=== PATIENT | female | born 1945 | race Caucasian/White ===

== ENCOUNTER 2017-09-26 08:00 | Outpatient (CLI) | payer MEDICARE | END 2017-09-26 08:01 | disposition home or self-care (01) | LOC: BICMAMMO 08:00 | PROVIDERS: ATTEND Specialist | DX: Z12.31 Encounter for screening mammogram for malignant neoplasm of breast (principal) | CPT/HCPCS: 77063; G0202; 77067 ==

== ENCOUNTER 2018-04-07 11:01 | Outpatient (CLI) | payer MEDICARE ==
--- NOTE | 2018-04-07 11:42 | RAD ---
CHEST PA AND LATERAL 2 VIEWS: History A 72-year-old female with a history of dyspnea. COMPARISON: 11/26/16. FINDINGS: Marked bilateral hyperinflation with increase in the AP dimension of the chest. Flattening of the he midiaphragms and blunting of the costophrenic angles. Heart size is within normal limits. No conflu ent pneumonia, overt edema, or pleural effusion. IMPRESSION: Marked bilateral stable hyperinflation. No significant new process. Atherosclerosis of the aorta. POS: [facility]
== END 2018-04-07 11:02 | disposition home or self-care (01) ==
LOC: RAD 11:01
PROVIDERS: ATTEND Internal Medicine Critical Care Medicine
DX: R06.00 Dyspnea, unspecified (principal); R91.8 Other nonspecific abnormal finding of lung field; I70.0 Atherosclerosis of aorta
CPT/HCPCS: 71046

== ENCOUNTER 2018-07-13 15:42 | Inpatient (IN) | payer MEDICARE ==
[2018-07-13 16:30] LABS: Bilirubin Moderate (Negative); Blood, Urine Large (Negative); Clarity CLOUDY (Clear); Glucose, Urine (Dipstick) Negative (Negative); Leukocyte Small (Negative); Nitrite Positive (Negative); Protein, Urine (Dipstick) > or equal to 300 mg/dL (Neg-Trace); Specific Gravity, Urine 1.029 (1.002-1.036); Urobilinogen 0.2 mg/dL (0.2-1.0)
[2018-07-13 16:32] LABS: Bacteria/HPF None Seen HPF (None Seen)
[2018-07-13 16:33] LABS: Hyaline Casts/LPF 0-3 HYALINE CAST LPF (0-3 Hyaline); Manual Microscopic Reviewed? No Path Casts Seen; Renal Epithelial None Seen HPF (0-3); Transitional Epithelial NONE SEEN HPF (0-3)
[2018-07-13 16:39] LABS: Amphetamine Not Detected (NotDetected); Barbiturates Screen Not Detected (NotDetected); Benzodiazepine Screen Not Detected (NotDetected); Cocaine Metabolite Screen Not Detected (NotDetected); Medtox Control Line Valid? VALID (VALID); Medtox Reader # READER 4; Methadone Not Detected (NotDetected); Methamphetamine Not Detected (NotDetected); Opiate Screen Not Detected (NotDetected); Oxycodone Screen Not Detected (NotDetected); Phencyclidine (PCP) Not Detected (NotDetected); THC/Cannabinoid Screen Not Detected (NotDetected); Tricyclic Screen Not Detected (NotDetected)
[2018-07-13 17:28] LABS: ALT (SGPT) 10 U/L (8-55); AST (SGOT) 50 U/L (5-34); Albumin 3.6 g/dL (3.4-4.8); Alkaline Phosphatase 85 U/L (40-150); Anion Gap 15 mmol/L (10-20); BUN (Urea Nitrogen) 35 mg/dL (9.8-20.1); Bilirubin, Total 2.4 mg/dL (0.2-1.2); Calc. Creatinine Clearance 0 mL/min (70-130); Calcium 9.1 mg/dL (7.8-10.44); Carbon Dioxide 24 mmol/L (23-31); Chloride 102 mmol/L (98-107); Estimated GFR-MDRD 36; Globulin 2.8 g/dL (2.4-3.5); Glucose 109 mg/dL (83-110); Lipase 8 U/L (8-78); Potassium 4.8 mmol/L (3.5-5.1); Protein, Total 6.4 g/dL (6.0-8.3); Sodium 136 mmol/L (136-145)
[2018-07-13 17:32] LABS: Acetaminophen Less than 6.0 mcg/mL (10.0-30.0); Alcohol Less than 10 mg/dL (Less than 10); Salicylate Less than 8.0 mg/dL (15.0-30.0)
[2018-07-13 17:37] LABS: CKMB 3.5 ng/mL (0-6.6); Troponin I 0.139 ng/mL (< 0.028)
--- NOTE | 2018-07-13 18:02 | RAD ---
RADIOGRAPH CHEST 1 VIEW: HISTORY: 72-year-old female with weakness. FINDINGS: There is no air space density, pulmonary edema, or pneumothorax. The lateral costophrenic angles are sharp. IMPRESSION: No acute pulmonary findings. bayron POS: [facility]
[2018-07-13] MEDS ORDERED: Acetaminophen 650 MG Suppository PR PRN (18:10)
[2018-07-13] MEDS ORDERED: Acetaminophen 325 MG TAB PO PRN (18:10)
[2018-07-13] MEDS ORDERED: Guaifenesin DM 100-10/5 ML UDCUP PO PRN (18:10)
--- NOTE | 2018-07-13 18:24 | CT ---
CT BRAIN NONCONTRAST: HISTORY: 72-year-old female with altered mental status, confusion. FINDINGS: There is no midline shift or any other mass effect. There is no evidence of acute intracranial hemor rhage, large cortical infarct, obstructive hydrocephalus, or extraaxial fluid collection. The calvar ium is intact. There is diffuse parenchymal volume loss. There are low attenuation areas in the whi te matter. These are nonspecific, but in a patient of this age, they are probably chronic ischemic w jennifer matter changes due to microvascular atherosclerosis. IMPRESSION: 1) No acute intracranial findings. 2) Involutional changes and chronic ischemic white matter changes. bayron POS: [facility]
[2018-07-13 18:59] LABS: Hemoglobin 15.2 g/dL (12.0-16.0); Mean Corpuscular HGB CONC 31.1 g/dL (32.0-36.0); Mean Corpuscular Hemoglobin 30.2 pg (27.0-31.0); Mean Corpuscular Volume 97.1 fL (78.0-98.0); Mean Platelet Volume 15.7 fL (7.4-10.4); Platelet Count 25 thou/uL (130-400); RBC Distribution Width 13.6 % (11.5-14.5); Red Blood Cell (RBC) Count 5.04 mill/uL (4.20-5.40); White Blood Cell (WBC) Count 14.8 thou/uL (4.8-10.8)
[2018-07-13 19:20] LABS: #Lymphocytes 1.6 thou/uL (1.20-3.40); #Monocytes 1.6 thou/uL (0.11-0.59); #Neutrophils 11.6 thou/uL (1.40-6.50); %Basophils 0.2 % (0.0-1.0); %Eosinophils 0.2 % (0.0-10.0); %Lymphocytes 10.6 % (21.0-51.0); %Monocytes 10.5 % (0.0-10.0); %Neutrophils 78.5 % (42.0-75.0); Band 8 % (5-11); Eosinophils 1 % (0-10); Lymphocytes 2 % (21-51); MDiff Complete? YES; Monocytes 4 % (0-10); Neutrophil 85 % (42-75); PLT Morphology Comment Appears Decreased; Poikilocytosis SLIGHT = 6-15 cells (100X) (0-5/hpf)
[2018-07-13 19:58] VITALS: BMI 22.8
[2018-07-13] MEDS ORDERED: Famotidine 20 MG TAB PO SCH (21:00)
[2018-07-13 21:01] LABS: Fibrinogen 447 mg/dL (253-463); INR-International Normal Ratio 1.1; PTT 27.2 SEC (22.9-36.1); Prothrombin Time 14.1 SEC (12.0-14.7)
[2018-07-13 21:01] LABS: Platelet Count 25 thou/uL (130-400)
[2018-07-13 21:02] LABS: D-Dimer Test 2.06 *mcg/mL (0.27-0.43); Platelet Count 25 thou/uL (130-400)
[2018-07-13 21:17] LABS: Troponin I 0.179 ng/mL (< 0.028)
[2018-07-13 21:17] LABS: Band 12 % (5-11); Hemoglobin 14.2 g/dL (12.0-16.0); Lymphocytes 10 % (21-51); MDiff Complete? YES; Mean Corpuscular HGB CONC 31.9 g/dL (32.0-36.0); Mean Corpuscular Hemoglobin 31.2 pg (27.0-31.0); Mean Corpuscular Volume 97.6 fL (78.0-98.0); Mean Platelet Volume 15.1 fL (7.4-10.4); Monocytes 9 % (0-10); Neutrophil 69 % (42-75); PLT Morphology Comment Appears Decreased; RBC Distribution Width 13.7 % (11.5-14.5); Red Blood Cell (RBC) Count 4.55 mill/uL (4.20-5.40); White Blood Cell (WBC) Count 12.8 thou/uL (4.8-10.8)
[2018-07-13] MEDS: Dextrose 5 % And 0.9 % NaCl 1,000 ML IV SCH (21:31)
[2018-07-13 21:37] LABS: FSP-Qualitative ABNORMAL (Normal)
[2018-07-13 21:38] LABS: FSP-Semiquantitative >=5 & <20 mcg/mL (Less than 5)
--- NOTE | 2018-07-14 | HP ---
REASON FOR ADMISSION: Acute encephalopathy, possible sepsis, urinary tract infection, demand ischemia, acute kidney injury, severe thrombocytopenia. HISTORY OF PRESENT ILLNESS: Please note patient is not a very good historian and does not recall anything except for feeling dizzy from 3 in the morning. I spoke to her son, Mr. Bang. Per son, patient was in the restroom for a long time. His grandson was knocking the door and patient was not responding. After nearly 45 minutes, fire department was called who busted open the door and went to check on her. She was sitting on the toilet seat leaning against the sink and was very lethargic. She did not recognize her grandson or the son. The patient has been feeling nauseous from Saturday and was dizzy from canvas marker today. She has had some dry cough. No fever as such at home. She did not complain of any weakness as such yesterday. PAST MEDICAL AND SURGICAL HISTORY: History of breast cancer, skin cancer, hypertension, dyslipidemia, COPD end-stage, likely left breast lumpectomy, depression. CURRENT MEDICATIONS: Patient is on K-Dur 10 mEq p.o. daily, aspirin 325 mg p.o. daily, Lasix 20 mg p.r.n., bupropion extended release 300 mg daily, Synthroid 88 mcg daily, vitamin D2 50,000 units 2 times a week, theophylline extended release 400 mg daily, Bystolic 5 mg daily, Pravachol 40 mg daily, DuoNebs p.r.n. ALLERGIES: CODEINE and LATEX. PERSONAL HISTORY: The patient continues to smoke half pack a day. Does not abuse alcohol or drugs. She lives with her grandson and son. FAMILY HISTORY: Cannot be obtained as patient is not oriented. CODE STATUS: FULL. I have discussed this with son, Mr. Bang, number to reach him is [phone]. PHYSICAL EXAMINATION: GENERAL: The patient is a 72-year-old female who is currently very lethargic and is not oriented. VITAL SIGNS: Blood pressure 158/100, pulse 70 per minute, respiratory rate 18 per minute, temperature 98.7 degrees Fahrenheit, saturating 93% on room air. NECK: Supple, no elevated JVD. EYES: Extraocular muscles intact. Pupils reacting to light. ORAL CAVITY: Mucous membranes are dry. No exudates or congestion. CARDIOVASCULAR SYSTEM: S1, S2 heard. Regular rhythm. RESPIRATORY SYSTEM: Air entry 1+ bilaterally, scattered rhonchi plus bilateral , occasional wheezes. ABDOMEN: Soft, bowel sounds heard. No tenderness, rigidity or guarding. EXTREMITIES: No peripheral edema or calf tenderness. VASCULAR SYSTEM: Peripheral pulses 1+ bilateral, no ischemic ulcerations or gangrene. CENTRAL NERVOUS SYSTEM: No gross focal deficits noted. The patient moves all 4 extremities. PSYCHIATRIC SYSTEM: No obvious hallucinations or delusions, but patient is very lethargic and is not oriented at present. IMAGING DATA AND LABORATORY DATA: EKG done shows normal sinus rhythm at 73 beats per minute. White count of 14, hemoglobin and hematocrit 15 and 49, platelet count 25, MCV is 97 with 78% neutrophils. Serum bicarbonate 24, BUN 35 , creatinine 1.4, serum glucose 109, total bilirubin 2.4, AST 50, ALT 10, alkaline phosphatase 85, troponin I 0.13, BNP is 305. TSH is 0.12. Albumin is 3.6. UA shows positive nitrite. There is large amount of blood and will check CK levels. Urine drug screen and serum drug screen is negative. Chest x-ray done shows no acute cardiopulmonary abnormalities. CT brain, no acute intracranial abnormalities. CLINICAL IMPRESSION AND PLAN: The patient will be admitted to telemetry for acute encephalopathy, severe dehydration, acute kidney injury, possible sepsis, severe thrombocytopenia of unknown cause, mild chronic obstructive pulmonary disease exacerbation. Patient will be on DuoNebs q.6 hourly. She will be gently hydrated with D5 normal saline at 75 mL per hour. We will obtain puga cultures and place her on Levaquin for now. We will also obtain a manual differential in view of severe thrombocytopenia stat. Patient has demand ischemia and we will obtain two more sets and see the trending. She will be on clear liquid diet until she is fully oriented. PT/OT evaluations will be requested from morning when she is more stable. Echo with 2D Doppler for LV function will be requested as well. CK level will also be obtained in view of patient being found down for an unknown period of time. CODE STATUS: FULL. I have discussed this with Mr. Bang, her son. JHONNY
[2018-07-14 00:02] LABS: Troponin I 0.159 ng/mL (< 0.028)
[2018-07-14] MEDS: Atorvastatin Calcium 10 MG TAB PO SCH (01:30)
[2018-07-14] MEDS: Docusate 100 MG CAP PO SCH ×2 (01:30→11:23)
[2018-07-14 04:45] LABS: Anion Gap 9 mmol/L (10-20); BUN (Urea Nitrogen) 40 mg/dL (9.8-20.1); Calc. Creatinine Clearance 25 mL/min (70-130); Calcium 6.9 mg/dL (7.8-10.44); Carbon Dioxide 22 mmol/L (23-31); Chloride 112 mmol/L (98-107); Estimated GFR-MDRD 24; Potassium 3.5 mmol/L (3.5-5.1); Sodium 139 mmol/L (136-145)
[2018-07-14 04:53] LABS: Glucose 791 mg/dL (83-110)
[2018-07-14 05:09] LABS: Platelet Count 19 thou/uL (130-400)
[2018-07-14 05:10] LABS: #Eosinphils 0.1 thou/uL (0.0-0.7); #Lymphocytes 1.3 thou/uL (1.20-3.40); #Monocytes 1.5 thou/uL (0.11-0.59); #Neutrophils 7.4 thou/uL (1.40-6.50); %Basophils 0.4 % (0.0-1.0); %Eosinophils 1.2 % (0.0-10.0); %Lymphocytes 12.6 % (21.0-51.0); %Monocytes 14.6 % (0.0-10.0); %Neutrophils 71.2 % (42.0-75.0); Hemoglobin 11.2 g/dL (12.0-16.0); Mean Corpuscular HGB CONC 31.4 g/dL (32.0-36.0); Mean Platelet Volume 14.5 fL (7.4-10.4); RBC Distribution Width 14.2 % (11.5-14.5); Red Blood Cell (RBC) Count 3.49 mill/uL (4.20-5.40); White Blood Cell (WBC) Count 10.3 thou/uL (4.8-10.8)
[2018-07-14 05:33] LABS: Glucose 91 mg/dL (83-110)
[2018-07-14] MEDS: Levothyroxine Sodium 88 MCG TAB PO SCH (07:31)
[2018-07-14] MEDS ORDERED: Aspirin 325 MG TAB PO SCH (08:00)
[2018-07-14 08:42] LABS: CRP (Inflammatory) 1.94 mg/dL (= or < 0.5)
[2018-07-14] MEDS ORDERED: Prevnar 13-Val Conj/PF 0.5 ML SYRINGE IM ONE (09:00)
[2018-07-14] MEDS ORDERED: Theophylline ER 450 MG TAB PO SCH (09:00)
[2018-07-14] MEDS ORDERED: Enoxaparin Sodium 30 MG/0.3 ML SYRINGE SC SCH (09:00)
--- NOTE | 2018-07-14 10:24 | RAD ---
PA AND LATERAL VIEWS OF THE CHEST: HISTORY: Thrombocytopenia. COMPARISON: Comparison is made with the exam of 02/06/11. FINDINGS: The heart size is mildly enlarged. The lungs are expanded without lobar consolidation, pneumothorace s, spike pulmonary edema, or pleural effusions. There are degenerative changes in the spine. IMPRESSION: Cardiomegaly. POS: [facility]
--- NOTE | 2018-07-14 10:35 | PDOC.PN ---
- Subjective Encounter Start Date: 07/14/18 Encounter Start Time: 09:20 Subjective: lethargic, awakens, not oriented -: moves all extremities - Objective Resuscitation Status: Resuscitation Status FULL:Full Resuscitation MAR Reviewed: Yes Vital Signs & Weight: Vital Signs (12 hours) Temp Pulse Resp BP Pulse Ox 07/14/18 07:49 98.1 F 72 18 172/79 H 92 L 07/14/18 06:38 92 L 07/14/18 06:30 72 20 92 L 07/14/18 05:05 99.3 F 72 20 145/70 H 92 L 07/14/18 00:30 63 18 87 L Weight Weight 141 lb 5 oz I&O: 07/13/18 07/14/18 07/15/18 06:59 06:59 06:59 Intake Total 900 Balance 900 Result Diagrams: 07/14/18 03:47 07/14/18 05:15 Additional Labs: Accuchecks 07/14/18 04:59 POC Glucose 92 Phys Exam - Physical Examination HEENT: MIKIE has dried crust of blood over inner lips and mucosa, no active bleed Neck: no JVD, supple Respiratory: no wheezing, no rales Cardiovascular: RRR, no significant murmur Gastrointestinal: soft, non-tender, positive bowel sounds Musculoskeletal: no edema, pulses present Neurological: non-focal, moves all 4 limbs Dx/Plan (1) Severe thrombocytopenia Code(s): D69.6 - THROMBOCYTOPENIA, UNSPECIFIED Status: Acute (2) DIC (disseminated intravascular coagulation) Code(s): D65 - DISSEMINATED INTRAVASCULAR COAGULATION Status: Suspected (3) Sepsis Code(s): A41.9 - SEPSIS, UNSPECIFIED ORGANISM Status: Suspected Qualifiers: Sepsis type: sepsis due to unspecified organism Qualified Code(s): A41.9 - Sepsis, unspecified organism (4) UTI (urinary tract infection) Status: Suspected Qualifiers: Urinary tract infection type: acute cystitis (5) Acute encephalopathy Code(s): G93.40 - ENCEPHALOPATHY, UNSPECIFIED Status: Acute (6) SAMIRA (acute kidney injury) Code(s): N17.9 - ACUTE KIDNEY FAILURE, UNSPECIFIED Status: Acute (7) Hypothyroidism Code(s): E03.9 - HYPOTHYROIDISM, UNSPECIFIED Status: Chronic Qualifiers: Hypothyroidism type: unspecified Qualified Code(s): E03.9 - Hypothyroidism , unspecified (8) Dyslipidemia Code(s): E78.5 - HYPERLIPIDEMIA, UNSPECIFIED Status: Chronic - Plan d/w and ([facility]) over phone -: today's smear will be reviewed, repeat cbc at 3 pm to look for schistocytes -: If TTP is confirmed will tx to higher level care -: is on empiric levaquin, gentle iv hydration -: still encephalopathic, no bleed on CT brain * . Review of Systems - Medications/Allergies Allergies/Adverse Reactions: Allergies Allergy/AdvReac Type Severity Reaction Status Date / Time codeine Allergy Verified 07/13/18 21:31 latex Allergy Verified 07/13/18 21:09 Latex, Natural Rubber Allergy Verified 07/13/18 21:08 Medications: Current Medications Acetaminophen (Tylenol) 650 mg PO Q4H PRN PRN Reason: Headache/Fever or Pain Acetaminophen (Tylenol) 650 mg SD Q4H PRN PRN Reason: Headache/Fever or Pain Albuterol/Ipratropium (Duoneb) 3 ml NEB [id number] [facility] Atorvastatin Calcium (Lipitor) 10 mg PO HS [facility] Last Admin: 07/14/18 01:30 Dose: Not Given Bupropion HCl (Wellbutrin Xl) 300 mg PO DAILY [facility] Docusate Sodium (Colace) 100 mg PO BID [facility] Last Admin: 07/14/18 01:30 Dose: Not Given Guaifenesin/Dextromethorphan (Robitussin Dm) 15 ml PO Q4H PRN PRN Reason: Cough Dextrose/Sodium Chloride (D5 0.9% Ns) 1,000 mls @ 75 mls/hr IV .[id number] [facility] Last Admin: 07/13/18 21:31 Dose: 1,000 mls Levofloxacin 750 mg/ Device 150 mls @ 100 mls/hr IVPB Q2D [facility] Last Admin: 07/13/18 21:32 Dose: 150 mls Levothyroxine Sodium (Synthroid) 88 mcg PO 0600 [facility] Last Admin: 07/14/18 07:31 Dose: Not Given Multivitamins (Theragran) 1 tab PO DAILY [facility] Nebivolol (Bystolic) 5 mg PO DAILY [facility] Theophylline (Theophylline Sr) 400 mg PO DAILY [facility]
[2018-07-14] MEDS: Bupropion 150 MG XL TAB PO SCH (11:23)
[2018-07-14] MEDS: Multivit, Therapeutic 1 TAB PO SCH (11:23)
[2018-07-14] MEDS: Nebivolol HCl 5 MG TAB PO SCH (11:23)
[2018-07-14 15:25] LABS: #Eosinphils 0.1 thou/uL (0.0-0.7); #Lymphocytes 1.3 thou/uL (1.20-3.40); #Monocytes 1.5 thou/uL (0.11-0.59); #Neutrophils 8.9 thou/uL (1.40-6.50); %Basophils 0.2 % (0.0-1.0); %Eosinophils 0.8 % (0.0-10.0); %Lymphocytes 10.9 % (21.0-51.0); %Monocytes 12.9 % (0.0-10.0); %Neutrophils 75.3 % (42.0-75.0); Hemoglobin 12.5 g/dL (12.0-16.0); Mean Corpuscular HGB CONC 32.7 g/dL (32.0-36.0); Mean Corpuscular Hemoglobin 31.7 pg (27.0-31.0); Mean Corpuscular Volume 96.8 fL (78.0-98.0); Platelet Count 13 thou/uL (130-400); RBC Distribution Width 13.9 % (11.5-14.5); Red Blood Cell (RBC) Count 3.96 mill/uL (4.20-5.40); White Blood Cell (WBC) Count 11.8 thou/uL (4.8-10.8)
--- NOTE | 2018-07-14 15:39 | NM ---
NUCLEAR MEDICINE VENTILATION PERFUSION SCAN: (V/Q SCAN) 07/14/2018 12:11 p.m. HISTORY: A 72-year-old female with elevated D-dimer and thrombocytopenia. TECHNIQUE: Xenon-133 gas dose: 25.2 millicuries [id number] dose: 6.0 millicuries The patient inhaled Xenon-133 gas, and dynamic ventilation scintigraphy was performed. Kf60x-CIN was injected IV, and multiple perfusion scintigraphic views were obtained. FINDINGS: There is a large number of bilateral small, matching ventilation and perfusion defects throughout bot h lungs. There is also a much larger, irregularity shaped, and ill defined region of decreased venti lation and perfusion involving much of the left lung. These are all consistent with COPD changes, an d with this degree of such disease, this would technically make this an indeterminate probability for PE. However, because no large VQ mismatches are visualized, this is slightly favored to be of low probabi lity. IMPRESSION: 1. Advanced emphysema technically makes this an indeterminate probability for pulmonary thromboembol ism. 2. However, this is slightly favored to be of low probability. JOSSE Solano POS: [facility]
[2018-07-14 15:40] LABS: Bilirubin, Direct 0.6 mg/dL (0.1-0.3); Bilirubin, Total 2.1 mg/dL (0.2-1.2)
[2018-07-14] MEDS: Dextrose 5 % And 0.9 % NaCl 1,000 ML IV SCH (16:30)
[2018-07-14] MEDS: hydrALAZINE 20 MG/ML VIAL SLOW IVP PRN ×2 (16:30→20:34)
[2018-07-14 18:18] LABS: INR-International Normal Ratio 1.1; PTT 27.2 SEC (22.9-36.1); Prothrombin Time 14.4 SEC (12.0-14.7)
[2018-07-14 18:19] LABS: D-Dimer Test 1.84 *mcg/mL (0.27-0.43)
[2018-07-14 19:45] LABS: Anion Gap 12 mmol/L (10-20); BUN (Urea Nitrogen) 60 mg/dL (9.8-20.1); Calc. Creatinine Clearance 21 mL/min (70-130); Calcium 9.3 mg/dL (7.8-10.44); Carbon Dioxide 24 mmol/L (23-31); Chloride 108 mmol/L (98-107); Estimated GFR-MDRD 19; Glucose 124 mg/dL (83-110); Potassium 4.3 mmol/L (3.5-5.1); Sodium 140 mmol/L (136-145)
--- NOTE | 2018-07-14 23:37 | CON ---
DATE OF CONSULTATION: 07/14/2018 REASON FOR CONSULTATION: Thrombocytopenia. HISTORY OF PRESENT ILLNESS: A 72-year-old female with COPD, hypertension, presenting with altered mental status and thrombocytopenia. The patient is a poor historian and almost nonverbal. T his is not her baseline. As per the family, the patient was found on Saturday in the restroom for a lo ng time and not responsive. As per history, about 45 minutes went by and the fire department came an d busted the door down to check on her. She was sitting on the toilet seat, lean against the sink an d very lethargic and did not recognize her grandson or son. The patient's daughters who are in the r oom state that she was feeling nauseous and just very sick on Saturday and did not elaborate any furthe r on any other symptoms. Family does state that she has not been eating or drinking very much recent ly and they believe she was very dehydrated. Upon admission to the hospital, her platelets were foun d to be 25 and have trended down currently to 13. Her hemoglobin was 15.2 on admission and is curren tly 12.5 after IV fluids. White blood cells are 14.8 on admission and currently 11.8. Dr. Faith olson Pathology reviewed the peripheral smear and noted very slight schistocytes with true thrombocytop enia without platelet clumping. The patient's coag profile was normal as was fibrinogen; however, fi brin split products were elevated along with D-dimer. The patient's creatinine on admission was 1.44 and has trended up to 2.00. LDH was elevated at 1130 and total bilirubin 2.1 with a direct bilirubi n of 0.6. CRP was also elevated at 1.94. Her urine was positive for nitrites and small leukocyte es terase and no bacteria was seen. Chest x-ray did not show any concern for pneumonia. REVIEW OF SYSTEMS: Unable to be obtained due to the patient's mental status. PAST MEDICAL HISTORY: Breast cancer, skin cancer, hypertension, high cholesterol, COPD, depression. SOCIAL HISTORY: Half a pack per day smoking. No alcohol or drugs. FAMILY HISTORY: Unable to be obtained. ALLERGIES: CODEINE and LATEX. CURRENT MEDICATIONS: Reviewed. PHYSICAL EXAMINATION: VITAL SIGNS: Temperature 98.9, pulse 71, respirations 20, satting 92% on room air, blood pressure ra nging 179/86 to 191/91. GENERAL APPEARANCE: The patient is lying in bed, appears uncomfortable. NECK: Supple. No JVD. HEENT: Eyes, equally round and reactive to light. Oral cavity, dry mucous membranes. CARDIOVASCULAR: S1, S2 regular rhythm and rate. RESPIRATORY: Mild crackles on the right side. ABDOMEN: Soft, nondistended, nontender. EXTREMITIES: No edema. SKIN: Some bruising on the hand. NEUROLOGIC: No focal deficits noted. PSYCHIATRIC: The patient states she knows her name, but is unable to say it and does not converse. She answered no to one question and said bye, otherwise was nonverbal. LABORATORY DATA: White blood cells 11.8, hemoglobin 12.5, platelets 13,000, MPV 17.0, neutrophils 75 .3%. Blood smear, minimal schistocytes seen. No platelet clumping. Reticulocyte count 2.0. PT 14. 1, INR 1.1, PTT 27.2, fibrinogen 447, fibrin degradation products abnormal, D-dimer 2.06, creatinine 1.44 on admission, currently 2.00. Total bilirubin 2.1, direct bilirubin 0.6, AST 50, ALT 10, alkali ne phosphatase 85, LDH 1130, CRP 1.94. Urine, large blood, positive nitrites, small leukocyte estera se, no bacteria seen. IMAGING DATA: Brain CT dated 07/13/2018 shows no acute intracranial findings, involutional changes a nd chronic ischemic white matter changes. ASSESSMENT AND PLAN: A 72-year-old female presenting with altered mental status and severe thrombocytopenia along with acute kidney injury and possibly urinary tract infection. The patient i s relatively nonverbal and does not recognize her daughters that were sitting in the room. The patie nt has acute kidney injury with increasing creatinine and BUN. The patient has a dirty urinalysis an d has been started on antibiotics and hydration with D5 normal saline. Cultures are currently pendin g. The patient has severe thrombocytopenia with decreasing platelets from 25 down to 13. Peripheral smear did not show schistocytes other than very rare cells. This is unlikely consistent with thromb otic thrombocytopenic purpura and the patient as well does not have anemia, although she does have an elevation in LDH and indirect bilirubin. The patient has elevated D-dimer and fibrin split products , which is consistent with disseminated intravascular coagulation; however, her fibrinogen and PT and PTT are normal. The patient has no history of autoimmune disease to suggest idiopathic thrombocytop enic purpura. She has no history of liver disease or alcohol abuse or palpable spleen to suggest hyp ersplenism. CT brain did not show any intracranial hemorrhage. I would recommend trending kidney fu nction and disseminated intravascular coagulation labs for improvement and if platelets drop below 10 , we would recommend platelet transfusion. We will continue to follow this patient. Thank you for this consult.
[2018-07-15 04:46] LABS: Hemoglobin 12.3 g/dL (12.0-16.0); Mean Corpuscular HGB CONC 33.4 g/dL (32.0-36.0); Mean Corpuscular Hemoglobin 31.9 pg (27.0-31.0); Mean Corpuscular Volume 95.8 fL (78.0-98.0); Platelet Count 12 thou/uL (130-400); RBC Distribution Width 15.2 % (11.5-14.5); Red Blood Cell (RBC) Count 3.86 mill/uL (4.20-5.40); White Blood Cell (WBC) Count 11.8 thou/uL (4.8-10.8)
[2018-07-15 05:00] LABS: Anion Gap 14 mmol/L (10-20); BUN (Urea Nitrogen) 64 mg/dL (9.8-20.1); Calc. Creatinine Clearance 21 mL/min (70-130); Calcium 9.1 mg/dL (7.8-10.44); Carbon Dioxide 21 mmol/L (23-31); Chloride 110 mmol/L (98-107); Estimated GFR-MDRD 19; Glucose 150 mg/dL (83-110); Potassium 4.6 mmol/L (3.5-5.1); Sodium 140 mmol/L (136-145)
[2018-07-15 05:03] LABS: #Eosinphils 0.1 thou/uL (0.0-0.7); #Lymphocytes 1.2 thou/uL (1.20-3.40); #Monocytes 1.6 thou/uL (0.11-0.59); #Neutrophils 8.9 thou/uL (1.40-6.50); %Eosinophils 0.6 % (0.0-10.0); %Lymphocytes 9.8 % (21.0-51.0); %Monocytes 13.7 % (0.0-10.0); %Neutrophils 75.8 % (42.0-75.0); MDiff Complete? YES; PLT Morphology Comment Appears Decreased; Schistocytes SLIGHT = 2-5 cells (100X) (0-1/hpf)
[2018-07-15] MEDS: Docusate 100 MG CAP PO SCH ×2 (06:00→09:53)
[2018-07-15] MEDS: Dextrose 5 % And 0.9 % NaCl 1,000 ML IV SCH ×4 (06:00→20:35)
[2018-07-15] MEDS: Atorvastatin Calcium 10 MG TAB PO SCH (06:00)
[2018-07-15] MEDS: Levothyroxine Sodium 88 MCG TAB PO SCH (06:01)
[2018-07-15] MEDS: hydrALAZINE 20 MG/ML VIAL SLOW IVP PRN ×3 (08:58→16:00)
[2018-07-15] MEDS ORDERED: cloNIDine 0.2mg/24 Hour PATCH TD SCH ×2 (09:00→18:30)
--- NOTE | 2018-07-15 09:16 | RAD ---
CHEST ONE VIEW: History: Thrombocytopenia. Dyspnea. Comparison: 07-14-18 FINDINGS: Cardiac silhouette is magnified by projection. Pulmonary vasculature unremarkable. Lungs remain hyper inflated. Mediastinum is midline with aortic calcification. No lobar consolidation or evidence of pne umothorax. IMPRESSION: 1. Atherosclerosis. 2. Stable radiographic appearance of the chest. POS: [facility]
[2018-07-15] MEDS: Multivit, Therapeutic 1 TAB PO SCH (09:53)
[2018-07-15] MEDS: Nebivolol HCl 5 MG TAB PO SCH (09:53)
[2018-07-15] MEDS: Bupropion 150 MG XL TAB PO SCH (09:53)
[2018-07-15 12:18] LABS: Platelet Count 12 thou/uL (130-400)
[2018-07-15] MEDS: Lorazepam 2 MG/ML VIAL SLOW IVP PRN ×3 (12:26→20:37)
[2018-07-15] MEDS: Lorazepam 2 MG/ML VIAL ONE (13:38)
[2018-07-15] MEDS ORDERED: Labetalol HCl 100 MG/20 ML VIAL SLOW IVP PRN (21:43)
--- NOTE | 2018-07-15 23:33 | CON ---
DATE OF CONSULTATION: 07/15/2018 CONSULTING PHYSICIAN: Hospitalist Service. IMPRESSION: Toxic metabolic encephalopathy. PLAN: 1. Continue antibiotics. 2. Continue IV fluids. 3. Monitor clinical course. HISTORY OF PRESENT ILLNESS: Ms. Sumner is a 72-year-old white female who was in fairly good health prior to her admission other than COPD. She apparently became acutely confused and disoriented while at home over the weekend. She was brought into the hospital for evaluation. Her CT scan of the bra in showed some age-related atrophy and small vessel changes. She has been persistently low grade neo tation with restless fidgeting movements. Her DIC screen was positive. Her BUN and creatinine were elevated at 64 and 2.4 with evidence of urinary tract infection on UA. Echocardiogram shows a normal ejection fraction, no evidence of valvular disease. Her tox screen was negative. She has been star aliyah on IV fluids and antibiotics. Her son reports that she was functioning independently, driving an d taking care of all her personal affairs prior to this event. There is no evidence of dementia. PAST MEDICAL HISTORY: Hypertension, COPD. ALLERGIES: As per chart. SOCIAL HISTORY: No alcohol or illicit drug use known. FAMILY HISTORY: Not obtainable. REVIEW OF SYSTEMS: Not obtainable. PHYSICAL EXAMINATION: GENERAL: She is a well-nourished elderly lady lying in a position. VITAL SIGNS: Show a low grade temperature with an axial measurement of 98.6. HEENT: Pupils are equal. Conjunctivae clear. NECK: Supple, no lymphadenopathy noted. NEUROLOGIC: She would open her eyes to verbal stimulation, but would not maintain attention. I coul d not get her to speak or follow any commands. She responded to touch on either side. Plantar stimu lation produced withdrawal. She had normal equal tone bilaterally. There were some restless movemen ts present. SUMMARY: Elderly lady who became acutely ill with probable urosepsis and secondary encephalopathy. I would expect things will improve with time.
[2018-07-15 23:42] LABS: Actual Bicarbonate (HCO3a) 23.2 mEq/L (22-28); Analyzer IN Cardio OR; Base Excess (BEa) -0.7 mEq/L (-2.0 to +3.0); CO2 Tension 35.6 mmHg (35.0-45.0); Calcium, Ionized 1.22 mmol/L (1.12-1.30); Carboxyhemoglobin (COHb) 2.5 gm% (0.0-3.0); Hemoglobin (Hb) 11.2 g/dL (12.0-16.0); O2 Tension (PaO2) 81.2 mmHg (> 70.0); pH, Arterial 7.43 (7.35-7.45)
[2018-07-15 23:43] LABS: Puncture Site RRA
[2018-07-16] MEDS ORDERED: methylPREDNISolone Sod Succ/PF 125 MG/2 ML VIAL IVP SCH ×2 (01:00→06:00)
[2018-07-16 01:26] LABS: Platelet Count 10 thou/uL (130-400)
[2018-07-16] MEDS: Atorvastatin Calcium 10 MG TAB PO SCH (01:33)
[2018-07-16] MEDS: Docusate 100 MG CAP PO SCH ×2 (01:34→09:47)
[2018-07-16 01:56] LABS: #Lymphocytes 1.1 thou/uL (1.20-3.40); #Monocytes 1.5 thou/uL (0.11-0.59); #Neutrophils 10.4 thou/uL (1.40-6.50); %Eosinophils 0.3 % (0.0-10.0); %Lymphocytes 8.6 % (21.0-51.0); %Monocytes 11.5 % (0.0-10.0); %Neutrophils 79.5 % (42.0-75.0); Anisocytosis SLIGHT = 6-15 cells (100X) (0-5/hpf); Bite Cells SLIGHT = 2-5 cells (100X) (0-1/hpf); Elliptocytes SLIGHT = 2-5 cells (100X) (0-1/hpf); MDiff Complete? YES; Mean Corpuscular HGB CONC 32.9 g/dL (32.0-36.0); Mean Corpuscular Hemoglobin 31.6 pg (27.0-31.0); PLT Morphology Comment Appears Decreased; Pappenheimer Bodies SLIGHT = 1-2 cells (100X) (None Seen); Polychromasia SLIGHT = 2-3 cells (100X) (0-2/hpf); RBC Distribution Width 16.8 % (11.5-14.5); Schistocytes SLIGHT = 2-5 cells (100X) (0-1/hpf)
[2018-07-16 02:16] LABS: Anion Gap 13 mmol/L (10-20); BUN (Urea Nitrogen) 83 mg/dL (9.8-20.1); Calc. Creatinine Clearance 16 mL/min (70-130); Calcium 9.2 mg/dL (7.8-10.44); Carbon Dioxide 21 mmol/L (23-31); Chloride 116 mmol/L (98-107); Estimated GFR-MDRD 15; Glucose 145 mg/dL (83-110); Potassium 4.6 mmol/L (3.5-5.1); Sodium 145 mmol/L (136-145)
[2018-07-16 04:40] LABS: Platelet Count 10 thou/uL (130-400)
[2018-07-16] MEDS: Levothyroxine Sodium 88 MCG TAB PO SCH (05:39)
[2018-07-16] MEDS: Lorazepam 2 MG/ML VIAL SLOW IVP PRN (05:57)
[2018-07-16 06:00] LABS: Anisocytosis SLIGHT = 6-15 cells (100X) (0-5/hpf); Band 8 % (5-11); Bite Cells SLIGHT = 2-5 cells (100X) (0-1/hpf); Hemoglobin 10.8 g/dL (12.0-16.0); Lymphocytes 9 % (21-51); MDiff Complete? YES; Mean Corpuscular Hemoglobin 31.7 pg (27.0-31.0); Mean Corpuscular Volume 96.2 fL (78.0-98.0); Monocytes 3 % (0-10); Neutrophil 80 % (42-75); PLT Morphology Comment Appears Decreased; Pappenheimer Bodies SLIGHT = 1-2 cells (100X) (None Seen); Polychromasia SLIGHT = 2-3 cells (100X) (0-2/hpf); RBC Distribution Width 16.8 % (11.5-14.5); Schistocytes SLIGHT = 2-5 cells (100X) (0-1/hpf); White Blood Cell (WBC) Count 12.7 thou/uL (4.8-10.8)
[2018-07-16 06:57] LABS: Actual Bicarbonate (HCO3a) 20.8 mEq/L (22-28); Base Excess (BEa) -3.4 mEq/L (-2.0 to +3.0); CO2 Tension 34.6 mmHg (35.0-45.0); Calcium, Ionized 1.24 mmol/L (1.12-1.30); Carboxyhemoglobin (COHb) 3.2 gm% (0.0-3.0); Hemoglobin (Hb) 11.2 g/dL (12.0-16.0); O2 Tension (PaO2) 61.9 mmHg (> 70.0); Potassium - ABG Lab 4.73 mmol/L (3.70-5.30)
[2018-07-16 06:58] LABS: Puncture Site RR
--- NOTE | 2018-07-16 07:25 | NM ---
VENTILATION PERFUSION EVALUATION: Date: 07/15/18 CLINICAL HISTORY: Dyspnea. Respiratory distress. Reference made to radiograph of chest same date. RADIOTRACER: 20 mCi Xenon inhaled; 6 mCi technetium-99m MAA IV. FINDINGS: Technical limitations are present due to patient inability to tolerate the exam. There is retained ac tivity on delayed ventilation imaging indicating air trapping. On perfusion imaging, there is a gener alized heterogeneity without a moderate or large filling defect identified. IMPRESSION: Low probability VQ scan for pulmonary embolus, within limitations.. POS: [facility]
--- NOTE | 2018-07-16 08:30 | RAD ---
AP CHEST: History: Respiratory distress. Date: 07-16-18 Comparison: 07-15-18 FINDINGS: AP chest demonstrates mild cardiomegaly and pulmonary vascular congestion. No evidence of effusions, pneumonia, or pneumothorax seen. IMPRESSION: Cardiomegaly. Calcification of the aorta. Otherwise unremarkable AP view chest. POS: [facility]
[2018-07-16] MEDS ORDERED: Propofol 1,000 MG/100 ML VIAL IV ONE (09:06)
[2018-07-16] MEDS ORDERED: Vecuronium 10 MG VIAL ONE (09:07)
[2018-07-16] MEDS ORDERED: Midazolam HCl 2 mg/2 ml Vial ONE (09:11)
[2018-07-16 09:36] LABS: INR-International Normal Ratio 1.2; PTT 23.2 SEC (22.9-36.1); Prothrombin Time 15.2 SEC (12.0-14.7)
--- NOTE | 2018-07-16 09:40 | CON ---
DATE OF CONSULTATION: 07/16/2018 REASON FOR CONSULTATION: IMCU. HISTORY: Patient was admitted to the hospital with sepsis syndrome, acute mental status change, UTI, renal failure and severe thrombocytopenia. Platelet count is 25,000 and dropped to 10,000. Yesterday, she developed progressive respiratory failure with confusion, was transferred, she is on B iPAP today in the [facility]. Neurology was consulted. Novi it was toxic metabolic encephalopathy with a platelet count being as l ow as 10,000. We discussed the findings with the horseback riding instructor was consulted and apparently they did see some schistocytes. A haptoglobin was less than 10. Findings are consistent with TTP. She is go ing to receive fresh frozen plasma and was planning to send her to [place] for possible plasmapheresi s. Unable to get any additional information from the family or from the patient at that time since she i s encephalopathic. PAST MEDICAL HISTORY: Pertinent for severe COPD. She has seen Dr. Delacruz in our office. History of hypertension, COPD, breast cancer, depression. PAST SURGICAL HISTORY: Otherwise included a lumpectomy. PFT done 03/2015 shows very severe COPD. SOCIAL HISTORY: Longstanding tobacco abuse. ALLERGIES: CODEINE, LATEX. HOME MEDICATIONS: Synthroid 100 mg, Spiriva, albuterol, pravastatin, potassium, Lasix, theophylline 400, Bystolic 5, ____ 1 tablet. PHYSICAL EXAMINATION: GENERAL: She is clearly encephalopathic on BiPAP. VITAL SIGNS: Saturations 100%, respirations 34, temperature 98, blood pressure 157/100. CHEST: Chest revealed decreased breath sounds, no wheezing. CARDIAC: Normal S1-S2. No gallops. ABDOMEN: Soft. No masses. LABORATORY AND X-RAY FINDINGS: Chest x-ray shows may be a questionable left-sided infiltrate. PO2 6 1, pCO2 is 34%, 4.0 on a BiPAP 8/8. White count 10,000, H&H 10 and 32, platelet count is 10,000. IMPRESSION: 1. Encephalopathy. 2. Severe thrombocytopenia and schistocytes on ____ smear consistent with thrombotic thrombocytopeni c purpura. 3. Respiratory failure. 4. Chronic obstructive pulmonary disease. 5. Renal failure. Creatinine is 3.12. BUN is 83. PLAN: I will discuss with Hematology. She is going to get FFP, consideration for transfer to a [facility] for plasmapheresis. Minimize medication. This is 45 minutes critical care time.
[2018-07-16 09:48] LABS: Bilirubin, Direct 0.8 mg/dL (0.1-0.3); Bilirubin, Total 2.5 mg/dL (0.2-1.2)
[2018-07-16] MEDS: Nebivolol HCl 5 MG TAB PO SCH (09:48)
[2018-07-16] MEDS: Multivit, Therapeutic 1 TAB PO SCH (09:48)
[2018-07-16] MEDS: Lorazepam 2 MG/ML VIAL ONE (10:03)
--- NOTE | 2018-07-16 10:07 | PDOC.EVN ---
Event Note - Event Note Event Note: MANAGER RELIABILITY Note: A code green was called for patient at 0032 on the telemetry floor due to increased work of breathing and patient utilizing accessory muscles to breath. Patient is admitted to our hospital due to Alteration of awareness. Of note patient has history of COPD and seems to be in acute exacerbation at this time. Patient is having wheezes bilaterally on the anterior and posterior lung newsome. No rales noted. Patient is able to respond to verbal stimuli however having shallow breathes due to increased work of breathing. Per nurse patient's respirations had been getting worse since the beginning of her shift. Vitals during code: BP 194 systolic, HR 82, rr 40's, Glucose 168 ABG pH 7.34 PCo2 35 PO2 81 Assessment plan. Acute respiratory failure. -Stat nebulizer treatment. then every 6hrs - CXR - Solumedrol 125mg stat then standing 80mg q6h - BiPAP - Transfer to [facility] for better monitoring - Discontinue patient's IV fluids for now - Pulm consult - Get labs to follow up on platelets. Transfuse if less than 10 - nephrology consult to work up renal failure - Will intubate if patient doesn't improve in 45 minutes after BIPAP has been initiated. - Patient assessed and examined by me Dr. Preet Watson Do
--- NOTE | 2018-07-16 11:05 | CON ---
DATE OF CONSULTATION: 07/16/2018 HISTORY OF PRESENT ILLNESS: Ms. Sumner is a 72-year-old white female who was admitted for mental st atus change. Of interest, this patient has a known history of COPD, hypertension. We are now being consulted for her acute kidney injury. She also was noted to be thrombocytopenic. She has been eval uated by Hematology. Initially it was felt that she did not have TTP. However, further review of he r laboratory and further clinical evaluation, the feeling, she may have TTP to explain her overall me dical problems. We were consulted for the acute kidney injury. The urinalysis showed significant pr oteinuria and hematuria which still maybe consisted with somebody with the acute renal failure from T . She is now being planned to be [facility] [facility] REVIEW OF SYSTEMS: Not obtainable. PAST MEDICAL HISTORY: Included; 1. Hypertension: 2. COPD. 3. Breast cancer. 4. Skin cancer. 5. Dyslipidemia. 6. Depression. PAST SURGICAL HISTORY: Included status post left breast lumpectomy. SOCIAL HISTORY: The patient continues to be a smoker. She lives with her son. Sedentary lifestyle. No IV drug abuse. ALLERGIES: CODEINE, LATEX. TRAUMA: None. IMMUNIZATIONS: Up to date. HOSPITALIZATIONS: Please see past medical history. FAMILY HISTORY: No significant history of ESRD. MEDICATIONS: Shows DuoNeb q.6 hours, clonidine patch TTS 2 every week, p.r.n. labetalol, Levaquin 75 0 mg every 2 days, Synthroid 88 mcg daily, Solu-Medrol 40 mg IV q.6 hours. PHYSICAL EXAMINATION: VITAL SIGNS: Blood pressure is noted at 157/100, heart rate 87, respiratory rate is noted at 34. O2 sat 100%, temperature 98.1. Currently on BiPAP. GENERAL: Lethargic, poorly responsive. SKIN: Decreased turgor. HEENT: She has pale conjunctivae, anicteric sclerae. NECK: No neck mass, no carotid bruits, no JVD. CHEST: No deformities. LUNGS: Decreased breath sounds. ABDOMEN: Positive for crackles. HEART: Normal sinus rhythm. Grade 2/6 systolic murmur, no gallops or rubs. ABDOMEN: Globular, soft, nontender. EXTREMITIES: Trace edema. LABORATORY: On 07/16/2018: White count 12.7, hemoglobin 10.8, platelet count is 10,000. Sodium 145 , potassium 4.6, chloride 106, carbon dioxide 21, BUN 83, creatinine 3.12, glucose 145, calcium 9.2. On 07/13/2013 urinalysis: Protein is greater than 300, RBC 7-10, WBC 4-6. Peripheral smears sugges t some degree of schistocytes. ASSESSMENT AND PLAN: 1. Acute kidney injury -- with a history of mental status change thrombocytopenia and finding of juliette istocytes on the peripheral blood smear, consideration for TTP was made. The plan is to transfer thi s patient to another facility where she might undergo plasma exchange therapy. 2. We will be signing off. Please recall if needed. Agree with current management.
[2018-07-16 11:22] VITALS: BP 108/63; TEMP 98.3
--- NOTE | 2018-07-16 11:28 | OP ---
DATE OF PROCEDURE: 07/16/2018 SURGEON: Dr. Lawson Rivera This is a 72-year-old female who was intubated with progressive obtundation, encephalopathy. She was transferred to the ICU. She is going to receive fresh frozen plasma and try and get her to a tertiary care center for plasmapheresis. After transfer to the ICU noninvasive ventilation was removed. She was given 2 of Versed. A bite bl ock in place and a 7.5 endotracheal tube was placed with the bronchoscope and passed above the hilario . She was bagged. Adequate oxygenation. Both lungs inspected. Right and left lung; no endobronchi al disease was seen. No blood was seen. Minimal mucus was there which was suctioned and lavaged unt il clear. Her pulse is 79, blood pressure 124/76, sats 100%, respiration rate 16. She is now connected to a warm cycle respirator.
[2018-07-16 14:42] LABS: Ref Lab Test Ordered ADAMTS13; Reference Lab Name LABCORP
== END 2018-07-16 11:49 | disposition short-term general hospital (02) | DRG 871 ==
LOC: ERS 15:42 → 2SE 18:05 → CCU 19:14 → IMCU/EMU 07-16 01:03 → CCU 07-16 09:41
PROVIDERS: ADMIT Internal Medicine; ATTEND Internal Medicine
PROC: 0BJ08ZZ Inspection of Tracheobronchial Tree, Via Natural or Artificial Opening Endoscopic (ICD-10-PCS; principal; 2018-07-16)
PROC: 5A1935Z Respiratory Ventilation, Less than 24 Consecutive Hours (ICD-10-PCS; 2018-07-16)
PROC: 0BH17EZ Insertion of Endotracheal Airway into Trachea, Via Natural or Artificial Opening (ICD-10-PCS; 2018-07-16)
PROC: 6A550Z3 Pheresis of Plasma, Single (ICD-10-PCS; 2018-07-16)
PROC: 30233L1 Transfusion of Nonautologous Fresh Plasma into Peripheral Vein, Percutaneous Approach (ICD-10-PCS; 2018-07-16)
DX: A41.9 Sepsis, unspecified organism (principal); D65 Disseminated intravascular coagulation [defibrination syndrome]; G92 Toxic encephalopathy; N39.0 Urinary tract infection, site not specified; I24.8 Other forms of acute ischemic heart disease; N17.9 Acute kidney failure, unspecified; J44.1 Chronic obstructive pulmonary disease with (acute) exacerbation; I10 Essential (primary) hypertension; E78.5 Hyperlipidemia, unspecified; Z85.3 Personal history of malignant neoplasm of breast; Z85.828 Personal history of other malignant neoplasm of skin; F32.9 Major depressive disorder, single episode, unspecified; Z79.899 Other long term (current) drug therapy; Z79.82 Long term (current) use of aspirin; Z88.5 Allergy status to narcotic agent; Z91.040 Latex allergy status; F17.210 Nicotine dependence, cigarettes, uncomplicated; E86.0 Dehydration
CPT/HCPCS: 36415; 36416; 36430; 51701; 70450; 71045; 71046; 78582; 80048; 80053; 80306; 80307; 81003; 81015; 82140; 82247; 82248; 82553; 82805; 83010; 83605; 83615; 83690; 83735; 83880; 84443; 84484; 85025; 85046; 85049; 85060; 85300; 85362; 85379; 85384; 85610; 85730; 86140; 86850; 86900; 86901; 87040; 87086; 90471; 90670; 93005; 93306; 94002; 94640; 94660; 94760; A4216; A4353; A9540; A9558; G0009; G8978-GP-CM; G8979-GP-CK; G8996-GN-CL; G8997-GN-CI; J0360; J1956; J2060; J2250; J2704; J2920; J2930; J7620; P9035; P9059